=== PATIENT | female | born 1935 | race Caucasian/White ===

== ENCOUNTER → 2021-01-20 | Outpatient (REF) | payer MEDICARE, BC | LOC: M LAB REF 12:41 | PROVIDERS: ATTEND Nurse Practitioner Adult Health | DX: E83.52 Hypercalcemia (principal) ==

== ENCOUNTER → 2022-09-06 | Outpatient (REF) | payer MEDICARE, BC | LOC: M LAB REF 12:12 | PROVIDERS: ATTEND Nurse Practitioner Adult Health | DX: Z11.1 Encounter for screening for respiratory tuberculosis (principal) ==

== ENCOUNTER → 2022-10-11 | Outpatient (REF) | payer MEDICARE, BC | LOC: M SFHCDERM 17:03 | PROVIDERS: ATTEND Physician Assistant | DX: C44.722 Squamous cell carcinoma of skin of right lower limb, including hip (principal) ==